=== PATIENT | female | born 1945 | race Caucasian/White ===

== ENCOUNTER 2016-10-05 19:17 | Emergency (ER) | payer MEDICARE ==
[~2016-10-05] VITALS: Ht 157.5 cm; Wt 113.6 kg
[2016-10-05 19:21] VITALS: TEMP 98.4
[2016-10-05] MEDS ORDERED: FLOXIN OTIC DROP5 ML (19:33)
[2016-10-05] MEDS ORDERED: ACULAR 5 ML5 ML (19:33)
[2016-10-05] MEDS ORDERED: EFFEXOR XR75 MG/CAP (19:34)
[2016-10-05] MEDS ORDERED: NEURONTIN600 MG/TAB (19:34)
[2016-10-05] MEDS ORDERED: ARICEPT 5MG PO (19:34)
[2016-10-05] MEDS ORDERED: MICRO-K 10 EXT10 MEQ (19:35)
[2016-10-05] MEDS ORDERED: CARDIZEM LA180 MG (19:36)
[2016-10-05] MEDS ORDERED: LOPRESSOR 550 MG/TAB (19:36)
[2016-10-05] MEDS ORDERED: REGLAN 10MG10 MG/TAB (19:36)
[2016-10-05] MEDS ORDERED: XELJANZ XR11 MG (19:37)
[2016-10-05 20:16] LABS: HEMOGLOBIN 12.7 g/dl (12.5-16.0); MEAN CELL VOLUME 101 fl (80.0-100.0); MEAN CORPUSCULAR HEMOGLOBIN 33 pg (27.0-31.0); MEAN CORPUSCULAR HGB CONC 33 g/dl (33.0-37.0); MEAN PLATELET VOLUME 9.9 fl (7.4-10.4); PLATELET COUNT 195 K/mm3 (130-400); RED BLOOD COUNT 3.88 M/mm3 (4.10-5.30); REDCELL DISTRIBUTION WIDTH-CV 14.6 % (11.5-14.5); WHITE BLOOD COUNT 7.5 K/mm3 (4.8-10.8)
[2016-10-05 20:25] LABS: ADJUSTED CALCIUM 9.9 mg/dL (8.4-10.2); ALBUMIN 3.6 gm/dL (3.5-5.0); CALCIUM 9.6 mg/dL (8.4-10.2); POTASSIUM 3.7 mmol/L (3.4-5.0); TOTAL PROTEIN 6.9 gm/dL (6.4-8.2)
[2016-10-05 20:43] LABS: BAND 9 % (0-10); EOSINOPHIL 1 % (0-4); METAMYELOCYTE 1 % (0-0); MYELOCYTE 1 % (0-0); NEUTROPHILS 71 % (42.0-75.2); PLATELET ESTIMATE NORMAL (NORMAL); TOTAL CELLS COUNTED 100
[2016-10-05 20:44] LABS: ADD PATHOLOGY DIFF REVIEW YES
[2016-10-05 21:04] LABS: C-REACTIVE PROTEIN 8.2 mg/dL (0.0-0.9)
[2016-10-05] MEDS ORDERED: AMOXICILLIN 8751 TAB PO (22:01)
[2016-10-05] MEDS ORDERED: PREDNISONE20 MG PO (22:01)
[2016-10-05 22:11] VITALS: BP 148/81; PULSE 88
[2016-10-08 08:19] LABS: PATHOLOGY DIFF REVIEW OK
== END 2016-10-05 22:11 | disposition home or self-care (01) ==
LOC: COL.ER 19:17
PROVIDERS: Nurse Practitioner
DX: L30.9 Dermatitis, unspecified (principal); L03.211 Cellulitis of face; I10 Essential (primary) hypertension; F32.9 Major depressive disorder, single episode, unspecified; M06.9 Rheumatoid arthritis, unspecified
CPT/HCPCS: J0295; J1885; J2930; J7040